=== PATIENT | male | born 1975 | race Two or more races ===

== ENCOUNTER 2017-04-26 00:49 | Emergency (ER) | payer OTHER ==
[~2017-04-26] VITALS: Ht 167.6 cm; Wt 74.8 kg
[2017-04-26 01:00] VITALS: BP 183/120
--- NOTE | 2017-04-26 01:00 | NUR ---
PT BIB [employer] IN CUSTODY; HIGH BLOOD PRESSURE. PT DENIES CP OR N/V. PT AOX4 [place] SPEAKING. RR EVEN AND UNLABORED. NO SOB NOTED. NAD NOTED. NO NVD AT THIS TIME. PT NOT DIAPHORETIC. PT GOWNED AND PLACED ON MONITOR WAITING FOR MD PURVIS.
--- NOTE | 2017-04-26 01:06 | NUR ---
[facility] LEFT, DR. SMITH AT BEDSIDE FOR EVAL.
--- NOTE | 2017-04-26 01:12 | NUR ---
Clary at bedside to translate. Patient does not wish to proceed with medical care recommended by Dr. Guzmán. Patient given information related to possible complications, up to and including , which could occur as a result of leaving the hospital at this time. Patient verbalizes understanding of risks involved due to leaving against medical advice. Patient has signed AMA form.
== END 2017-04-26 01:17 | disposition home or self-care (01) ==
LOC: ER 00:56
DX: I10 Essential (primary) hypertension (principal)
CPT/HCPCS: A4606; Z7610